=== PATIENT | female | born 1975 | race Two or more races ===

== ENCOUNTER 2025-03-05 13:01 | Emergency (ER) | payer OTHER ==
[~2025-03-05] VITALS: Ht 162.6 cm; Wt 62.6 kg
[2025-03-05] MEDS ORDERED: NEURONTIN300 MG (14:15)
[2025-03-05] MEDS ORDERED: ONDANSETRON HCL 2 MG/ML VIAL IV STA (16:30)
[2025-03-05] MEDS ORDERED: ONDANSETRON HCL 2 MG/ML VIAL ONE (16:31)
[2025-03-05] MEDS ORDERED: BARIUM SULFATE 450 ML ORAL.SUSP PO ONE (16:32)
[2025-03-05 17:02] LABS: BASO % 1.6 % (0.1-1.2); EOS # 0.31 (0.04-0.54); EOS % 3.1 % (0.7-7.0); LYMPH # 3.96 (1.18-3.74); LYMPH % 39.9 % (19.3-53.1); MEAN PLATELET VOLUME 8.60 fl (9.4-12.4); MONO # 0.52 (0.24-0.82); MONO % 5.2 % (4.7-12.5); NEUT # 4.95 (1.56-6.13); NEUT % 49.9 % (34.0-71.1); RED CELL DISTRIBUTION WIDTH 14.9 % (11.6-14.4)
[2025-03-05 17:40] LABS: BUN CREA RATIO 19.0 (7.0-25.0); CREATININE SERUM 1.19 mg/dL (0.55-1.02); GFR 48.01; GLUCOSE FASTING 109.0 mg/dL (65-100); OSMOLALITY SERUM 286.0 MOSM/KG (275-295)
[2025-03-05 20:06] LABS: URINE APPEARANCE Clear; URINE BILIRRUBIN Negative (NEGATIVE); URINE BLOOD Small; URINE COLOR Yellow; URINE GLUCOSE Negative (NEGATIVE); URINE KETONE Negative (NEGATIVE); URINE LEUKOCYTE Negative; URINE NITRATE Negative; URINE PROTEIN Negative (NEGATIVE); URINE UROBILINOGEN 0.2 E.U./dl
[2025-03-05 20:09] LABS: URINE BACTERIA 61.1 uL (0.0-1933); URINE EPITHELIAL CELLS 16.1 uL (0.0-38.8); URINE RBC 32.2 uL (0.0-20.8); URINE WBC 16.4 uL (0.0-23.2)
[2025-03-05 20:21] LABS: URINE CAST 0.00 uL (0.0-1.40)
== END 2025-03-05 21:14 | disposition home or self-care (01) ==
LOC: ER 13:01
PROVIDERS: Emergency Medicine
DX: G89.18 Other acute postprocedural pain (principal); R10.2 Pelvic and perineal pain; N93.8 Other specified abnormal uterine and vaginal bleeding; Z88.8 Allergy status to other drugs, medicaments and biological substances
CPT/HCPCS: 36415; 74177; 96365; 99284; J2405; Q9965